=== PATIENT | female | born 1975 | race Caucasian/White ===

== ENCOUNTER 2016-09-25 02:41 | Inpatient (IN) | payer OTHER ==
[~2016-09-25] VITALS: Ht 167.6 cm; Wt 76.7 kg
[2016-09-25 03:33] LABS: RED BLOOD COUNT 3.96 M/UL (4.00-5.10)
[2016-09-25 03:51] LABS: HEMOGLOBIN 6.2 gm/dl (12.3-15.3); WHITE BLOOD COUNT 32.6 K/UL (4.5-11.0)
[2016-09-25 09:01] LABS: BUN/CREATININE RATIO 10 (0-10)
[2016-09-25 09:04] LABS: WHITE BLOOD COUNT 27.3 K/UL (4.5-11.0)
[2016-09-25 09:15] LABS: HEMOGLOBIN 4.8 gm/dl (12.3-15.3); RED BLOOD COUNT 3.08 M/UL (4.00-5.10)
[2016-09-26 06:21] LABS: BUN/CREATININE RATIO 18 (0-10); RED BLOOD COUNT 2.55 M/UL (4.00-5.10); WHITE BLOOD COUNT 22.2 K/UL (4.5-11.0)
[2016-09-27 02:38] LABS: RED BLOOD COUNT 2.79 M/UL (4.00-5.10)
[2016-09-27 02:39] LABS: WHITE BLOOD COUNT 28.9 K/UL (4.5-11.0)
[2016-09-27 02:41] LABS: HEMOGLOBIN 4.4 gm/dl (12.3-15.3)
== END 2016-09-27 15:01 | disposition home or self-care (01) | DRG 765 ==
LOC: GENOP 02:41 → OB 03:04
PROVIDERS: Internal Medicine Hematology & Oncology; Obstetrics & Gynecology; ADMIT Obstetrics & Gynecology
PROC: 10D00Z1 Extraction of Products of Conception, Low, Open Approach (ICD-10-PCS; principal; 2016-09-25 03:15)
PROC: 30233N1 Transfusion of Nonautologous Red Blood Cells into Peripheral Vein, Percutaneous Approach (ICD-10-PCS; 2016-09-27)
DX: O34.211 Maternal care for low transverse scar from previous cesarean delivery (principal); O41.1231 Chorioamnionitis, third trimester, fetus 1; O41.12 Chorioamnionitis; Z3A.39 39 weeks gestation of pregnancy; Z37.3 Twins, one liveborn and one stillborn; O77.0 Labor and delivery complicated by meconium in amniotic fluid; O30.043 Twin pregnancy, dichorionic/diamniotic, third trimester; O32.2XX2 Maternal care for transverse and oblique lie, fetus 2; Z87.891 Personal history of nicotine dependence; D50.9 Iron deficiency anemia, unspecified; D72.829 Elevated white blood cell count, unspecified
CPT/HCPCS: 36415; 36430; 80048; 80074; 80076; 80307; 82728; 83010; 83540; 83550; 83605; 83615; 85014; 85018; 85025; 85045; 85384; 85610; 85730; 86762; 86780; 86850; 86900; 86901; 86920; 87390; C9113; J0690; J1580; J1756; J1956; J2210; J2274; J2370; J2405; J2590; J2765; J3010; J3105; J7040; J7050; J7120; P9016